=== PATIENT | female | born 1985 | race Caucasian/White ===

== ENCOUNTER 2020-08-19 12:53 | Outpatient (REF) | payer SELFPAY ==
[2020-08-19 12:54] VITALS: BP 118/70; PULSE 92; RESP 15; TEMP 36.8; O2SAT 97; BMI 24.3
--- NOTE | 2020-08-19 13:16 | EX.ED.UPPERE ---
HPI History of Present Illness HPI Narrative: Patient is a 35-year-old female who presents to the emergency department for needlestick. Patient working in the OR today. She did not actually realize she got poked by the needle but felt a shock whenever she took one of the needle probes off of the patient's forehead. She does not think that this is a hypodermic needle. The needle stick was to the tip of the left thumb. No active bleeding. She could not even find a hole in the glove. The needle source is having his lab work drawn. No known history of hepatitis or HIV. Patient otherwise has no complaints. Chief Complaint: Occup Expose PFSH PFS Home Medications NK 08/19/20 [History Last Taken Unknown] Allergy/AdvReac Type Severity Reaction Status Date / Time No Known Allergies Allergy Verified 08/19/20 13:21 Social History Smoking Status: Never smoker ROS ROS ED Constitutional Constitutional ED: Reports other Details: No fever ENT ENT ED: Denies rhinorrhea Respiratory/Chest Respiratory/Chest: Denies cough Gastrointestinal Gastrointestinal: Denies vomiting Musculoskeletal Musculoskeletal: Reports other Integumentary Reports Abrasions Neurologic Neurologic: Denies weakness Hematologic/Lymphatic Hematologic/Lymphatic: Denies easy bleeding EXAM Physical Exam Const Vital Signs: 08/19/20 12:54 Temperature 98.3 F Temperature Source Temporal Pulse Rate 92 Respiratory Rate 15 Blood Pressure 118/70 Blood Pressure Mean 86 Pulse Ox 97 Oxygen Delivery Method Room Air Positive well nourished and well developed General Appearance ED: well developed HEENT normocephalic and atraumatic Eyes PERRL Neck supple Resp normal respiratory effort Cardio regular rate Extremity normal to inspection Extremity Narrative: 5 out of 5 muscle strength throughout. Neuro Sensorium / Orientation: alert Psych mental status grossly normal Skin Skin Narrative: Tiny needle prick to left distal thumb. No active bleeding. No surrounding signs of infection. MDM MDM MDM Narrative Medical decision making narrative: Patient presents the ED for needlestick protocol. The source is having his lab work drawn. Patient here to have her lab work drawn for hepatitis and HIV. I did discuss postexposure prophylaxis with the patient and she is declining. Patient otherwise has no complaints. Will discharge in stable condition. She is to follow-up with the occupational health. Discharge Plan Triage Chief Complaint: Occup Expose ED Provider: Brett Ramirez Dx/Rx/DC Orders Clinical Impression: Needle stick injury Instructions: ED NEEDLE STICK Health Care Worker Prescriptions: No Action NK RF: 0 Primary Care Provider: Care Physician,No Primary Referrals: NOT,DEFINED [NON-STAFF] - Activity Restrictions/Additional Instructions: Please follow-up with occupational health. Disposition Disposition: Home, Self Care Discharge Date/Time: 08/19/20 14:04
--- NOTE | 2020-08-19 15:09 | ED.RN ---
DR SMITH NOTIFIED OF HEP ANTIBODY RESULTS
[2020-08-19 15:18] LABS: HIV - WCH Non-Reactive (Nonreactive); Hepatitis B Surface Antibody Reactive; Hepatitis B Surface Antigen Non-Reactive (Nonreactive); Hepatitis C Antibody Non-Reactive (Nonreactive)
== END 2020-08-19 14:04 | disposition home or self-care (01) ==
LOC: ED 12:53
PROVIDERS: Visit Provider Emergency Medicine
DX: S61.032A Puncture wound without foreign body of left thumb without damage to nail, initial encounter (principal); L76.11 Accidental puncture and laceration of skin and subcutaneous tissue during a dermatologic procedure
CPT/HCPCS: 86703; 86706; 86803; 87340